=== PATIENT | female | born 1995 | race Caucasian/White ===

== ENCOUNTER 2019-05-16 04:25 | Emergency (ER) | payer BC ==
--- NOTE | 2019-05-16 04:50 | EDM.PDOC ---
ED HPI GENERAL MEDICAL PROBLEM - General Chief Complaint: General Stated Complaint: RT BREAST HURTS Time Seen by Provider: 05/16/19 04:31 - History of Present Illness INITIAL COMMENTS - FREE TEXT/NARRATIVE: HISTORY AND PHYSICAL: History of present illness: The patient is a 24-year-old female who is breast-feeding her 8-month-old son and presents with complaints of pain to her right breast which started less than 24 hours ago associated with a artery area which is tender. Patient says that in the past when she has had symptoms like this she has aggressively pumped the breast in order to move things through and was able to resolve it without any intervention or infections. She has never had any mastitis with this child. There has been no drainage or discharge from the nipples and no other systemic complaints such as fever chills chest pain or shortness of breath. She's eating and drinking normally and the left breast has no abnormalities appreciated. She's never had any breast surgeries or breast problems. She says because of the pain she was concerned which is why she came in to the ED and the middle the night. Review of systems: As per history of present illness and below otherwise all systems reviewed and negative. Past medical history: As per history of present illness and as reviewed below otherwise noncontributory. Surgical history: As per history of present illness and as reviewed below otherwise noncontributory. Social history: No reported history of drug or alcohol abuse. Family history: As per history of present illness and as reviewed below otherwise noncontributory. Physical exam: General: Well-developed well-nourished female who is nontoxic and vital signs are noted by me HEENT: Atraumatic, normocephalic, negative for conjunctival pallor or scleral icterus, mucous membranes moist, throat clear, neck supple, nontender, trachea midline. Lungs: Clear to auscultation, breath sounds equal bilaterally, chest nontender. The left breast is within normal limits and there are no palpable masses on cursory exam. At the right breast there is no axillary adenopathy and there is no tenderness with palpation except at approximately 9:00 where there is an ill- defined but well-circumscribed 6 x 8 cm hardened irregular area which has no warmth redness and only mild tenderness. It is not fixated and is very mobile and the edges feel irregular makes it ill-defined. There appears to be some depth to this which I cannot appreciate. Heart: S1S2, regular rate and rhythm no overt murmurs Abdomen: Soft, nondistended, nontender. NABS Pelvis: Deferred Genitourinary: Deferred. Rectal: Deferred. Extremities: Atraumatic, negative for cords or calf pain. Neurovascular unremarkable. Neuro: Awake, alert, oriented. Cranial nerves II through XII unremarkable. Cerebellum unremarkable. Motor and sensory unremarkable throughout. Exam nonfocal. Diagnostics: Breast ultrasound Therapeutics: 0611: Dr Mccall was consult on this case for advice as this patient did not deliver her baby here. She says that although this is just a blocked duct if it is painful then it is susceptible to an infection and it may be an early infection even though there is no redness or other objective findings. She recommends starting dicloxacillin. I discussed the ultrasound results with the patient and this conversation with the provider and will give her prescription for antibiotics and recommend that she pump the breast milk on the right breast at least every 3-4 hours to promote drainage of the duct and to hopefully prevent progression of the pain and blockage and further infection. Impression: Right breast pain, blocked duct rule out early mastitis Definitive disposition and diagnosis as appropriate pending reevaluation and review of above. right breast Pain Score (Numeric/FACES): 5 - Related Data Allergies Allergy/AdvReac Type Severity Reaction Status Date / Time No Known Allergies Allergy Verified 05/16/19 04:37 Home Meds: Home Meds . 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: Musculoskeletal History: Reports: None Neurological History: Reports: None Psychiatric History: Reports: None Endocrine/Metabolic History: Reports: None Insulin Pump Model and Casket Liner: None Hematologic History: Reports: None Immunologic History: Reports: None Oncologic (Cancer) History: Reports: None Dermatologic History: Reports: None - Infectious Disease History Infectious Disease History: Reports: None - Past Surgical History HEENT Surgical History: Reports: None Social & Family History - Family History Family Medical History: Noncontributory - Tobacco Use Smoking Status *Q: Never Smoker - Caffeine Use Caffeine Use: Reports: Coffee - Recreational Drug Use Recreational Drug Use: No ED ROS GENERAL - Review of Systems Review Of Systems: ROS reveals no pertinent complaints other than HPI. ED EXAM, GENERAL - Physical Exam Exam: See Below (See dictation) Course - Vital Signs Last Recorded V/S: Last Vital Signs Temp 36.1 C 05/16/19 04:35 Pulse 80 05/16/19 04:35 Resp 17 05/16/19 04:35 BP 111/51 L 05/16/19 04:35 Pulse Ox 97 05/16/19 04:35 Departure - Departure Time of Disposition: : Disposition: Home, Self-Care 01 Condition: Good Clinical Impression: Breast pain, right, Mammary disorder - Discharge Information Referrals: PCP,None [Primary Care Provider] - Forms: ED Department Discharge Additional Instructions: The following information is given to patients seen in the emergency department who are being discharged to home. This information is to outline your options for follow-up care. We provide all patients seen in our emergency department with a follow-up referral. The need for follow-up, as well as the timing and circumstances, are variable depending upon the specifics of your emergency department visit. If you don't have a primary care physician on staff, we will provide you with a referral. We always advise you to contact your personal physician following an emergency department visit to inform them of the circumstance of the visit and for follow-up with them and/or the need for any referrals to a consulting specialist. The emergency department will also refer you to a specialist when appropriate. This referral assures that you have the opportunity for followup care with a specialist. All of these measure are taken in an effort to provide you with optimal care, which includes your followup. Under all circumstances we always encourage you to contact your private physician who remains a resource for coordinating your care. When calling for followup care, please make the office aware that this follow-up is from your recent emergency room visit. If for any reason you are refused follow-up, please contact the [facility] emergency department at and ask to speak to the emergency department charge nurse. [facility] [address] [place] [phone] Continue to pump breastmilk on the right breast every 3-4 hours to promote movement of the milk and open this block up. Please fill the prescription for dicloxacillin you have been given and start taking this morning and continue to monitor your symptoms. Please call and schedule a follow-up appointment with your provider in the clinic or one of ours at the women's health clinic for further care and evaluation and return to ER as needed as discussed
--- NOTE | 2019-05-16 06:00 | US ---
--- Preliminary Report --- FINDINGS: Echogenic breast tissues compatible with . There is a dilated duct a located 7 cm from the nipple at the 9 o`clock position. No signs for obvious abscess. Dictated by Austin Alegria MD @ 05/16/2019 5:57:56 AM Preliminary Report by Dr. Austin Alegria @ May 16 2019 5:58AM --- Preliminary Report ---
== END 2019-05-16 06:25 | disposition home or self-care (01) ==
LOC: MW.ED 04:25
DX: N60.41 Mammary duct ectasia of right breast (principal)
CPT/HCPCS: 76642-RT; 99283-25

== ENCOUNTER 2019-09-05 09:52 | Emergency (ER) | payer BC ==
--- NOTE | 2019-09-05 10:26 | EDM.PDOC ---
ED HPI GENERAL MEDICAL PROBLEM - General Chief Complaint: Back Pain or Injury Stated Complaint: PAIN ON TAILBONE Time Seen by Provider: 09/05/19 10:26 Source of Information: Reports: Patient History Limitations: Reports: No Limitations - History of Present Illness INITIAL COMMENTS - FREE TEXT/NARRATIVE: HISTORY AND PHYSICAL: History of present illness: Patient is a 24-year-old female presents to the ED With complaint of tailbone pain. She states a few days ago she was walking her dog when her dog pulled her and she slipped on this ice landing on her bottom. She states since then she is having a lot of pain especially when trying to sit down. She denies lower extremity pain/weakness/numbness/tingling, bowel or bladder incontinence, saddle anesthesia. She denies other injuries and has no other complaints at this time. Review of systems: As per history of present illness and below otherwise all systems reviewed and negative. Past medical history: As per history of present illness and as reviewed below otherwise noncontributory. Surgical history: As per history of present illness and as reviewed below otherwise noncontributory. Social history: No reported history of drug or alcohol abuse. Family history: As per history of present illness and as reviewed below otherwise noncontributory. Physical exam: General: Patient sitting comfortably in no acute distress and nontoxic appearing HEENT: Atraumatic, normocephalic, pupils reactive, negative for conjunctival pallor or scleral icterus, mucous membranes moist, throat clear, neck supple, nontender, trachea midline. No meningeal signs. Lungs: Clear to auscultation, breath sounds equal bilaterally, chest nontender. Heart: S1S2, regular, negative for clicks, rubs, or overt murmur. Abdomen: Soft, nondistended, nontender. Negative for masses or hepatosplenomegaly. Negative for costovertebral tenderness. No rigidity, rebound , guarding. Pelvis: Stable nontender. Genitourinary: Deferred. Rectal: Deferred. Spine: No vertebral tenderness or step offs to palpation. No sacral pain to palpation. Pain to palpation of coccyx. Extremities: Atraumatic, negative for cords or calf pain. Neurovascular unremarkable. Neuro: Awake, alert, oriented. Cranial nerves II through XII unremarkable. Cerebellum unremarkable. Motor and sensory unremarkable throughout. Exam nonfocal. Notes: Diagnostics: sacrum and coccyx x-ray Therapeutics: none Prescriptions: Impression: Coccodynia Plan: Alternate tylenol and motrin as needed Follow up with primary care provider Return to ED as needed as discussed Definitive disposition and diagnosis as appropriate pending reevaluation and review of above. tailbone Pain Score (Numeric/FACES): 5 - Related Data Allergies Allergy/AdvReac Type Severity Reaction Status Date / Time No Known Allergies Allergy Verified 09/05/19 10:06 Home Meds: Home Meds . 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: Musculoskeletal History: Reports: None Neurological History: Reports: None Psychiatric History: Reports: None Endocrine/Metabolic History: Reports: None Insulin Pump Model and Manufacturer Representative: None Hematologic History: Reports: None Immunologic History: Reports: None Oncologic (Cancer) History: Reports: None Dermatologic History: Reports: None - Infectious Disease History Infectious Disease History: Reports: None - Past Surgical History HEENT Surgical History: Reports: None Social & Family History - Family History Family Medical History: Noncontributory - Tobacco Use Smoking Status *Q: Never Smoker - Caffeine Use Caffeine Use: Reports: Coffee - Recreational Drug Use Recreational Drug Use: No ED ROS GENERAL - Review of Systems Review Of Systems: Comprehensive ROS is negative, except as noted in HPI. ED EXAM,LOWER BACK PAIN/INJURY - Physical Exam Exam: See Below (see dictation) Course - Vital Signs Last Recorded V/S: Last Vital Signs Temp 98.0 F 09/05/19 10:03 Pulse 82 09/05/19 10:03 Resp 18 09/05/19 10:03 BP 119/66 09/05/19 10:03 Pulse Ox 98 09/05/19 10:03 Departure - Departure Time of Disposition: 11:17 Disposition: Home, Self-Care 01 Condition: Good Clinical Impression: Coccyodynia - Discharge Information Referrals: Edilia Parsons INFRASTRUCTURE SOFTWARE ENGINEER [Primary Care Provider] - Forms: ED Department Discharge Additional Instructions: The following information is given to patients seen in the emergency department who are being discharged to home. This information is to outline your options for follow-up care. We provide all patients seen in our emergency department with a follow-up referral. The need for follow-up, as well as the timing and circumstances, are variable depending upon the specifics of your emergency department visit. If you don't have a primary care physician on staff, we will provide you with a referral. We always advise you to contact your personal physician following an emergency department visit to inform them of the circumstance of the visit and for follow-up with them and/or the need for any referrals to a consulting specialist. The emergency department will also refer you to a specialist when appropriate. This referral assures that you have the opportunity for follow-up care with a specialist. All of these measure are taken in an effort to provide you with optimal care, which includes your follow-up. Under all circumstances we always encourage you to contact your private physician who remains a resource for coordinating your care. When calling for follow-up care, please make the office aware that this follow-up is from your recent emergency room visit. If for any reason you are refused follow-up, please contact the [facility] Emergency Department at and asked to speak to the emergency department charge nurse. [facility] [address] [place] [address] [address] Alternate tylenol and motrin as needed Follow up with primary care provider Return to ED as needed as discussed Sepsis Event Note - Evaluation Sepsis Screening Result: No Definite Risk - Focused Exam Vital Signs: Vital Signs Temp Pulse Resp BP Pulse Ox 09/05/19 10:03 98.0 F 82 18 119/66 98 Date Exam was Performed: 09/05/19 Time Exam was Performed: 11:16
--- NOTE | 2019-09-05 11:09 | CR ---
Sacrum and coccyx: 3 views of the sacrum and coccyx were obtained. Comparison: No previous study. Disc space at L5-S1 is preserved. Sacroiliac joints appear unremarkable. No fracture or other abnormality is seen. Impression: 1. No abnormality is identified on three-view sacrum and coccyx study. Diagnostic code #1 This report was dictated in [place] Standard Time
== END 2019-09-05 11:25 | disposition home or self-care (01) ==
LOC: MW.ED 09:52
DX: M53.3 Sacrococcygeal disorders, not elsewhere classified (principal)
CPT/HCPCS: 72220; 72220-26; 99282; 99283-25